=== PATIENT | female | born 1930 | race Caucasian/White ===

== ENCOUNTER → 2018-03-21 | Outpatient (CLI) | payer OTHER ==
[~2018-03-21] MED LIST: AMBIEN10 MG PO; AMLODIPINE BES2.5 MG PO; AMLODIPINE BESY10 MG PO; Ambien PO; BENZONATATE200 MG PO; Bactrim,Septra DS 80 PO; CALCIUM CARB1 TABLET PO; CHERATUSSIN AC473 ML PO; COUMADIN5 MG PO; COUMADIN7.5 MG PO; Calcium Carbonate/Vi PO; Dilaudid PO; FUROSEMIDE20 MG PO; Fish Oil PO; GABAPENTIN400 MG; GABAPENTIN400 MG PO; HYDROCODONE-AP1 EAC8 PO; HYDROMORPHONE HC2 MG; HYDROMORPHONE HC2 MG PO; LIDODERM 5% P1 PATCH TD; LOVENOX60 MG/0.6 SC; LOVENOX60 MG/0.6 SQ; NABUMETONE750 MG PO; NAPROSYN500 MG PO; NEURONTIN400 MG PO; NIFEREX-150,FE150 MG PO; OXYCODONE HCL5 MG PO; PAIN MEDICATION; PERCOCET 5/31 TABLET PO; PHENAZOPYRIDIN200 MG PO; RELAFEN500 MG PO; RELAFEN750 MG PO; SENNA-TIME S T1 EACH PO; THERAGRAN1 TABLET PO; TYLENOL REGULA325 MG PO; ULTRACET1 TABLET PO; ULTRAM50 MG PO; UNKNOWN PAIN MED; VESICARE5 MG PO; Vitamin B-12 PO; XARELTO20 MG PO; ZANAFLEX4 M1 PO
== END | disposition home or self-care (01) ==
LOC: EKG 12:28
DX: Z01.810 Encounter for preprocedural cardiovascular examination (principal); M79.642 Pain in left hand; M19.042 Primary osteoarthritis, left hand; I45.10 Unspecified right bundle-branch block; I44.4 Left anterior fascicular block
CPT/HCPCS: 93005